=== PATIENT | female | born 1945 | race Caucasian/White ===

== ENCOUNTER → 2016-12-28 | Outpatient (CLI) | payer OTHER ==
[~2016-12-28] MED LIST: BENADRYL25 MG PO; COUMADIN1 MG PO; IRON325 M1 PO; METHOCARBAMOL500 MG PO; OXYCODONE HCL5 MG PO; SENNA-TIME S T1 EACH PO
== END | disposition home or self-care (01) ==
LOC: NUC 07:28
DX: E05.20 Thyrotoxicosis with toxic multinodular goiter without thyrotoxic crisis or storm (principal); R94.6 Abnormal results of thyroid function studies; E04.2 Nontoxic multinodular goiter
CPT/HCPCS: 78014; 78999; A9512; A9531